=== PATIENT | male | born 1975 | race Two or more races ===

== ENCOUNTER 2021-12-24 10:01 | Emergency (ER) | payer MEDICAID, SELFPAY ==
[2021-12-24 10:04] VITALS: BP 132/83; PULSE 71; RESP 18; TEMP 36.8; O2SAT 98; BMI 26.5
[2021-12-24] MEDS: Lidocaine HCl 1 % MPF 2 ML VIAL INFILTRATI ×3 (10:43)
--- NOTE | 2021-12-24 11:17 | ED_ITS ---
HPI - Wound/Laceration General Chief Complaint: Wound/Laceration Stated Complaint: glass in l knee Time Seen by Provider: 12/24/21 10:37 History of Present Illness HPI narrative: Patient complains of laceration of left knee from a piece of glass, he was carrying of window and then tripped and his knee went through the window and a piece of glass was impaled into his knee which he pulled out, no numbness no weakness no tingling no other injury Related Data Allergies Allergy/AdvReac Type Severity Reaction Status Date / Time No Known Allergies Allergy Verified 12/24/21 10:38 Review of Systems Review of Systems: Positive for left knee laceration from glass Negatives are no head injury no neck pain no back pain no numbness no weakness no tingling no other laceration no other wounds, no difficulty ambulating or bending the knee Yes all other systems are reviewed and are negative PMFSH Past Medical History Source: nursing notes reviewed Social History Social History Advance Directives: No Advance Directives Information Provided: No Physical Exam Vital Signs: Vital Signs: Last Vital Signs Temp 98.2 F 12/24/21 10:04 Pulse 71 12/24/21 10:04 Resp 18 12/24/21 10:04 BP 132/83 12/24/21 10:04 Pulse Ox 98 12/24/21 10:04 O2 Del Method 12/24/21 10:04 BMI result Body Mass Index 26.5 General appearance no distress Head normocephalic atraumatic Neck is supple Respiratory no distress Extremities full range of motion x4 including left knee Left knee had all 1.5 cm laceration on the lateral aspect of the knee, there was no swelling, range of motion was full, gait was normal, neurovascular intact distal Course Course Course Narrative: Patient became upset at the time it was taking to get his x-ray and to get his sutures so he left despite efforts to let him know that I would look at the x- rays soon as it was done and would then be able to stitch the wound, he said he was upset in 1 to stay and he left The laceration will close on its own it was not deep and no treatment was provided to the laceration Discharge Plan Discharge Clinical Impression: Laceration Patient Disposition: Elopement
== END 2021-12-24 11:52 | disposition left against medical advice (07) ==
PROVIDERS: Emergency Provider Emergency Medicine
DX: S81.012A Laceration without foreign body, left knee, initial encounter (principal); W01.110A Fall on same level from slipping, tripping and stumbling with subsequent striking against sharp glass, initial encounter; Y93.H3 Activity, building and construction; Y92.038 Other place in apartment as the place of occurrence of the external cause; Y99.9 Unspecified external cause status
CPT/HCPCS: 99282